=== PATIENT | male | born 1960 | race Caucasian/White ===

== ENCOUNTER 2018-06-16 17:50 | Emergency (ER) | payer OTHER ==
[2018-06-16] MEDS ORDERED: FLUT16SP19 NS (18:04)
[2018-06-16] MEDS ORDERED: ASPI81TA94 PO (18:04)
[2018-06-16] MEDS ORDERED: SIMV-49 PO (18:04)
--- NOTE | 2018-06-16 18:14 | EKG ---
FACILITY: [facility] PATIENT NAME: TORRI FITZGERALD : [id number] MR: [id number] V: [id number] EXAM DATE: ORDERING PHYSICIAN: LUIZ PERALTA TECHNOLOGIST: TANA Cabezas Reason : Blood Pressure : / mmHG Vent. Rate : 097 BPM Atrial Rate : 097 BPM P-R Int : 172 ms QRS Dur : 110 ms QT Int : 364 ms P-R-T Axes : 042 -50 029 degrees QTc Int : 462 ms Sinus rhythm with occasional premature ventricular complexes and Possible premature atrial complexes with aberrant conduction Left anterior fascicular block Abnormal ECG No previous ECGs available Confirmed by TORRI TUTTLE ([id number]) on 06/16/2018 8:17:25 PM Referred By: Confirmed By:TORRI TUTTLE
--- NOTE | 2018-06-16 18:15 | ER Report ---
History and Physical Time Seen By MD: 18:15 Hx. of Stated Complaint: PT REPORT R SIDE CHEST PAIN, WORSE WITH DEEP BREATH HPI/ROS CHIEF COMPLAINT: Chest pain HISTORY OF PRESENT ILLNESS: This is a 58-year-old male. He is having pain in the right side of the chest. Sharp in quality. Radiates to his back. Worse with deep breaths. Does not seem to worsen with exertion. He had the pain start yesterday. He did note some weakness and discomfort in his hips and legs when hiking yesterday. Denies any fevers or chills. He has had a little bit of a cough. No nausea or vomiting but he does have a poor appetite. No problem with bowel or bladder function. Allergies: Coded Allergies: acetaminophen (Verified Allergy, Unknown, 06/16/18) hydrocodone (Verified Allergy, Unknown, 06/16/18) Home Meds Reported Medications Fluticasone Prop 50 Mcg Ns (FLONASE 50 MCG NS) 16 Gm [place].susp, 1 SPRAY NS BID, BOT 06/16/18 Aspirin (ASPIRIN) 81 Mg Tab.chew, 81 MG PO QDAY, TAB.CHEW 06/16/18 Simvastatin (SIMVASTATIN) 20 Mg Tablet, 10 MG PO HS, TAB 06/16/18 Reviewed Nurses Notes: Yes Hx Substance Use Disorder: No Hx Alcohol Use: No Constitutional Vital Sign - Last 24 Hours 06/16/18 06/16/18 06/16/18 06/16/18 17:54 17:56 18:00 18:05 Temp 98.5 Pulse 103 86 Resp 20 25 B/P (MAP) 155/97 155/97 (116) 159/98 (118) Pulse Ox 90 88 06/16/18 06/16/18 06/16/18 06/16/18 18:20 18:30 18:35 18:50 Pulse 88 74 82 Resp 19 21 18 B/P (MAP) 141/83 (102) Pulse Ox 86 87 91 06/16/18 06/16/18 06/16/18 06/16/18 18:59 19:00 19:05 19:20 Pulse 83 84 Resp 19 14 B/P (MAP) 133/83 (100) Pulse Ox 93 92 O2 Flow Rate 2.0 06/16/18 06/16/18 06/16/18 06/16/18 19:30 19:35 19:40 19:55 Pulse 80 82 82 Resp 24 28 19 B/P (MAP) 133/77 (95) Pulse Ox 93 93 93 06/16/18 06/16/18 06/16/18 06/16/18 20:00 20:10 20:25 20:30 Pulse 79 ??? Resp 25 B/P (MAP) 133/75 (94) ???/??? (1665) Pulse Ox 92 93 06/16/18 06/16/18 06/16/18 06/16/18 20:40 21:00 21:10 21:15 Pulse ? B/P (MAP) ???/??? (1665) 133/73 (93) 06/16/18 06/16/18 21:25 21:30 Pulse 78 Resp 29 B/P (MAP) 124/70 (88) Pulse Ox 94 Physical Exam General Appearance: The patient is alert. No acute distress. Non-toxic in appearance. Eyes: Pupils are equal, round. No pallor, injection or icterus. ENT: Mucous membranes are moist. Normal oral mucosa. Posterior oropharynx is normal. Neck: Supple and non tender. Respiratory: Lungs are clear to auscultation. Cardiovascular: Tachycardia, irregularly irregular rhythm. No murmurs, gallops or rubs. Normal capillary refill. Gastrointestinal: Abdomen is soft and non tender. Nondistended. Normal active bowel sounds. Neurological: Alert and oriented x3. No focal neurologic deficits Skin: Warm and dry. No rashes. Musculoskeletal: Extremities are nontender. No pain with palpating the chest wall or back. No tenderness in palpation of the cervical, thoracic and lumbar spine. DIFFERENTIAL DIAGNOSIS: After history and physical exam, differential diagnosis was considered for chest pain including but not limited to myocardial ischemia, pericarditis pulmonary embolus, chest wall pain, pleural inflammation and pulmon gulshan infectious causes. Medical Decision Making Data Points Result Diagram: 06/16/18195406/16/18 182 Laboratory Hematology Test 06/16/18 18:20 06/16/18 19:55 D-Dimer Quantitative (PE/DVT) 1.10 ug/ml (0-0.50) Sodium Level 140 mmol/L (137-145) Potassium Level 3.8 mmol/L (3.5-5.0) Chloride Level 102 mmol/L (98-107) Carbon Dioxide Level 25 mmol/L (22-30) Blood Urea Nitrogen 15 mg/dl (9-21) Creatinine 1.10 mg/dl (0.66-1.25) Glomerular Filtration Rate Calc > 60.0 Random Glucose 111 mg/dl (75-110) Calcium Level 9.1 mg/dl (8.4-10.2) Total Bilirubin 1.2 mg/dl (0.2-1.3) Aspartate Amino Transf (AST/SGOT) 38 U/L (0-35) Alanine Aminotransferase (ALT/SGPT) 35 U/L (0-56) Alkaline Phosphatase 54 U/L (0-126) Troponin I < 0.012 ng/ml C-Reactive Protein 7.5 mg/dl (<1.0) Total Protein 7.5 g/dl (6.3-8.2) Albumin 4.4 g/dl (3.5-5.0) Red Blood Count 5.28 M/uL (4.00-5.60) Mean Corpuscular Volume 89.5 fL (80.0-96.0) Mean Corpuscular Hemoglobin 30.6 pg (26.0-33.0) Mean Corpuscular Hemoglobin Concent 34.2 g/dL (32.0-36.0) Red Cell Distribution Width 13.8 % (11.5-14.5) Mean Platelet Volume 9.7 fL (7.2-11.1) Neutrophils (%) (Auto) 71.5 % (39.4-72.5) Lymphocytes (%) (Auto) 16.4 % (17.6-49.6) Monocytes (%) (Auto) 10.7 % (4.1-12.4) Eosinophils (%) (Auto) 0.6 % (0.4-6.7) Basophils (%) (Auto) 0.8 % (0.3-1.4) Nucleated RBC Relative Count (auto) 0.1 /100WBC Neutrophils # (Auto) 7.5 K/uL (2.0-7.4) Lymphocytes # (Auto) 1.7 K/uL (1.3-3.6) Monocytes # (Auto) 1.1 K/uL (0.3-1.0) Eosinophils # (Auto) 0.1 K/uL (0.0-0.5) Basophils # (Auto) 0.1 K/uL (0.0-0.1) Nucleated RBC Absolute Count (auto) 0.01 K/uL Erythrocyte Sedimentation Rate 11 mm/HOUR (0-20) B-Type Natriuretic Peptide 11 pg/ml (0-100) Chemistry Test 06/16/18 18:20 06/16/18 19:55 D-Dimer Quantitative (PE/DVT) 1.10 ug/ml (0-0.50) Glomerular Filtration Rate Calc > 60.0 Calcium Level 9.1 mg/dl (8.4-10.2) Total Bilirubin 1.2 mg/dl (0.2-1.3) Aspartate Amino Transf (AST/SGOT) 38 U/L (0-35) Alanine Aminotransferase (ALT/SGPT) 35 U/L (0-56) Alkaline Phosphatase 54 U/L (0-126) Troponin I < 0.012 ng/ml C-Reactive Protein 7.5 mg/dl (<1.0) Total Protein 7.5 g/dl (6.3-8.2) Albumin 4.4 g/dl (3.5-5.0) White Blood Count 10.4 k/uL (4.5-11.0) Red Blood Count 5.28 M/uL (4.00-5.60) Hemoglobin 16.2 g/dL (14.0-18.0) Hematocrit 47.3 % (42.0-52.0) Mean Corpuscular Volume 89.5 fL (80.0-96.0) Mean Corpuscular Hemoglobin 30.6 pg (26.0-33.0) Mean Corpuscular Hemoglobin Concent 34.2 g/dL (32.0-36.0) Red Cell Distribution Width 13.8 % (11.5-14.5) Platelet Count 157 K/uL (150-450) Mean Platelet Volume 9.7 fL (7.2-11.1) Neutrophils (%) (Auto) 71.5 % (39.4-72.5) Lymphocytes (%) (Auto) 16.4 % (17.6-49.6) Monocytes (%) (Auto) 10.7 % (4.1-12.4) Eosinophils (%) (Auto) 0.6 % (0.4-6.7) Basophils (%) (Auto) 0.8 % (0.3-1.4) Nucleated RBC Relative Count (auto) 0.1 /100WBC Neutrophils # (Auto) 7.5 K/uL (2.0-7.4) Lymphocytes # (Auto) 1.7 K/uL (1.3-3.6) Monocytes # (Auto) 1.1 K/uL (0.3-1.0) Eosinophils # (Auto) 0.1 K/uL (0.0-0.5) Basophils # (Auto) 0.1 K/uL (0.0-0.1) Nucleated RBC Absolute Count (auto) 0.01 K/uL Erythrocyte Sedimentation Rate 11 mm/HOUR (0-20) B-Type Natriuretic Peptide 11 pg/ml (0-100) Coagulation Test 06/16/18 18:20 D-Dimer Quantitative (PE/DVT) 1.10 ug/ml EKG/Imaging EKG Interpretation 12 lead EKG: Rhythm: Sinus rhythm with PVCs, rate 97 [employer]: Left axis deviation QRS: Left anterior fascicular block ST segments: No ST elevation or depression noted, nonspecific T-wave flattening in the inferior leads Imaging EXAMINATION: PA and Lateral Chest 06/16/2018 7:05 PM HISTORY: chest pain. IV blew during attempt at CTA chest. COMPARISON: None FINDINGS: Cardiomediastinal contours: Normal Lungs and pleura: Normal Bones/soft tissues: Significant density of extravasated contrast in the subclavicular and axillary area on the left. IMPRESSION: 1. Extravasated contrast in the left subclavicular and axillary area. 2. No acute cardiopulmonary finding. Report Dictated By: Sudeep Ruiz MD at 06/16/2018 9:[address] PE DATE: 06/16/2018 9:27 PM INDICATION: Chest pain. COMPARISON: Same-day radiographs. TECHNIQUE: Axial CT angiogram was obtained through the chest with intravenous contrast. Sagittal and coronal MPR and MIP coronal reformations were also generated. 95 mL isovue 370. During injection, there is a large volume of contrast extravasation into the left upper extremity and chest. One of the following dose optimization techniques was utilized in the performance of this exam: Automated exposure control; adjustment of the mA and/or kV according to the patient's size; or use of an iterative reconstruction technique. Specific details can be referenced in the facility's radiology CT exam operational policy. FINDINGS: Thyroid / Thoracic Inlet: No visualized thyroid nodule or supraclavicular lymphadenopathy. Pulmonary Arteries: Examination is nondiagnostic for evaluation of the pulmonary arteries in terms of filling defects due to lack of adequate contrast opacification. Heart and Aorta: Normal-size heart with no pericardial effusion. Nonaneurysmal thoracic aorta. Mediastinum and Elizabet: No lymphadenopathy. Lungs and Pleura: No pleural effusion or pneumothorax. There is a patchy, reticular and groundglass opacification in the periphery of the right lower lobe base as well as in the medial base of the right middle lobe. Small right pleural effusion. Bilateral calcified granulomas. There are additional small nodules that may not be calcified in the right upper lobe including 4 mm nodule on image 116 series 4 and 3 mm nodule on image 114. No pneumothorax. Breast and Axilla: No axillary lymphadenopathy. No adenopathy. Upper Abdomen: No visualized acute abnormality. Bones and Soft Tissues: No suspicious osseous or soft tissue abnormality. Extravasated contrast in the left anterior chest wall, incompletely imaged. IMPRESSION: 1. Nondiagnostic evaluation of the pulmonary arteries for pulmonary emboli due to lack of sufficient intravenous contrast. Extravasated contrast in the left anterior chest wall, incompletely imaged. 2. Peripheral opacities in the base of the right lower and middle lobes with small right pleural effusion. Although nonspecific, these opacities do have a pattern that can be seen in the setting of pulmonary infarct. Infectious or inflammatory etiology not excluded. Consider evaluation of the extremities for deep vein thromboses if indicated. Dr. Campbell discussed this case with LUIZ PERALTA on 06/16/2018 9:39 PM. Report Dictated By: Noe Campbell MD at 06/16/2018 9:27 PM ED Course/Re-evaluation Clinical Indication for ER IV: IV Access ED Course After my initial evaluation, concerned about PE versus inflammatory or infectious etiology. The patient is most worried about cardiac and I think this is less likely but indicated to him that we would do an evaluation. Troponin and EKG are unremarkable. Labs otherwise unremarkable except for his d-dimer which was elevated. He has no swelling in the lower extremities and no pain there. Nursing had a hard time getting IV and were able to get one on the upper chest wall. CT angiogram was attempted and the IV blew. Unable to get the full CT angiogram done. This does show some changes that could be representing pulmonary infarct with PE, however not able to diagnose Aaron. Discussed all this with the patient. After our discussion, he will return in the morning to see if we can get an IV placed with ultrasound guidance and get a CT angiogram completed. In the meantime we did give him 140 mg subcutaneous injection of Lovenox. Decision to Disposition Date: Jun 16, 2018 Decision to Disposition Time: 23:19 Depart Departure Latest Vital Signs Vital Signs Date Time Temp Pulse Resp B/P (MAP) Pulse Ox O2 Delivery O2 Flow Rate FiO2 06/16/18 21:30 124/70 (88) 06/16/18 21:25 78 29 94 06/16/18 18:59 2.0 06/16/18 17:54 98.5 Impression: Primary Impression: Chest pain Condition: Improved Disposition: HOME OR SELF-CARE Patient Instructions: Chest Pain (ED) Problem Qualifiers Primary Impression: Chest pain Chest pain type: unspecified Qualified Codes: R07.9 - Chest pain, unspecified LUIZ PERALTA MD Jun 16, 2018 18:15
[2018-06-16 20:08] LABS: PLATELET COUNT, AUTOMATED 157 K/uL (150-450)
[2018-06-16] MEDS ORDERED: IOPAMIDOL 76% 100 ML INFUS BTL 0 ML ONE (20:24)
[2018-06-16] MEDS ORDERED: NS(*) 0.9% 50 ML BAG 0 ML ONE (20:24)
[2018-06-16] MEDS ORDERED: NS(*) 0.9% 50 ML BAG 50 ML ONE (20:44)
[2018-06-16] MEDS ORDERED: IOPAMIDOL 76% 75 ML INFUS BTL 75 ML ONE (20:45)
--- NOTE | 2018-06-16 21:29 | RADIOLOGY IMAGING REPORT ---
FACILITY: [facility] PATIENT NAME: Subhash Kaufman : 1960 MR: [id number] V: [id number] EXAM DATE: ORDERING PHYSICIAN: LUIZ PERALTA TECHNOLOGIST: Location: [facility] Patient: Subhash Kaufman : 1960 Visit/Account:[id number] Date of Sevice: 06/16/2018 EXAMINATION: PA and Lateral Chest 06/16/2018 7:05 PM HISTORY: chest pain. IV blew during attempt at CTA chest. COMPARISON: None FINDINGS: Cardiomediastinal contours: Normal Lungs and pleura: Normal Bones/soft tissues: Significant density of extravasated contrast in the subclavicular and axillary ar ea on the left. IMPRESSION: 1. Extravasated contrast in the left subclavicular and axillary area. 2. No acute cardiopulmonary finding. Report Dictated By: Sudeep Ruiz MD at 06/16/2018 9:22 PM Report E-Signed By: Sudeep Ruiz MD at 06/16/2018 9:24 PM WSN:[id number]
[2018-06-16 21:30] VITALS: BP 124/70
--- NOTE | 2018-06-16 21:43 | RADIOLOGY IMAGING REPORT ---
[place] [facility] [place] NAME: Subhash Kaufman : 1960 MR: [id number] V: [id number] EXAM DATE: [id number] ORDERING PHYSICIAN: LUIZ PERALTA [place]CHNOLOGIST: [place] [facility] [place]hash K[place] : 1960 Visit/Account:[id number] Date of Sevice: 06/16/2018 CT PE DATE: 06/16/2018 9:27 PM INDICATION: Chest pain. COMPARISON: Same-day radiographs. TECHNIQUE: Axial CT angiogram was obtained through the chest with intravenous contrast. Sagittal an d coronal MPR and MIP coronal reformations were also generated. 95 mL isovue 370. During injection, there is a large volume of contrast extravasation into the left upper extremity and chest. One of t he following dose optimization techniques was utilized in the performance of this exam: Automated exp osure control; adjustment of the mA and/or kV according to the patient's size; or use of an iterative reconstruction technique. Specific details can be referenced in the facility's radiology CT exam o perational policy. FINDINGS: Thyroid / Thoracic Inlet: No visualized thyroid nodule or supraclavicular lymphadenopathy. Pulmonary Arteries: Examination is nondiagnostic for evaluation of the pulmonary arteries in terms o f filling defects due to lack of adequate contrast opacification. Heart and Aorta: Normal-size heart with no pericardial effusion. Nonaneurysmal thoracic aorta. Mediastinum and Elizabet: No lymphadenopathy. Lungs and Pleura: No pleural effusion or pneumothorax. There is a patchy, reticular and groundglass opacification in the periphery of the right lower lobe base as well as in the medial base of the rig ht middle lobe. Small right pleural effusion. Bilateral calcified granulomas. There are additional small nodules that may not be calcified in the right upper lobe including 4 mm nodule on image 116 s eries 4 and 3 mm nodule on image 114. No pneumothorax. Breast and Axilla: No axillary lymphadenopathy. No adenopathy. Upper Abdomen: No visualized acute abnormality. Bones and Soft Tissues: No suspicious osseous or soft tissue abnormality. Extravasated contrast in the left anterior chest wall, incompletely imaged. IMPRESSION: 1. Nondiagnostic evaluation of the pulmonary arteries for pulmonary emboli due to lack of sufficient intravenous contrast. Extravasated contrast in the left anterior chest wall, incompletely imaged. 2. Peripheral opacities in the base of the right lower and middle lobes with small right pleural eff usion. Although nonspecific, these opacities do have a pattern that can be seen in the setting of pu lmonary infarct. Infectious or inflammatory etiology not excluded. Consider evaluation of the extre mities for deep vein thromboses if indicated. Dr. Campbell discussed this case with LUIZ PERALTA on 06/16/2018 9:39 PM. Report Dictated By: Noe Campbell MD at 06/16/2018 9:27 PM Report E-Signed By: Noe Campbell MD at 06/16/2018 9:39 PM WSN:[id number]
[2018-06-16] MEDS ORDERED: ENOXAPARIN 100 MG/ML SYR SC SCH (21:50)
== END 2018-06-16 22:13 | disposition home or self-care (01) ==
LOC: ER 18:20
DX: R07.89 Other chest pain (principal); R94.31 Abnormal electrocardiogram [ECG] [EKG]
CPT/HCPCS: 36415; 71046; 71275; 83880; 84484; 85025; 85379; 85651; 86140; 93005; 96372; 99284; J1650; J7050; Q9967; 82040; 82247; 82310; 82374; 82435; 82565; 82947; 84075; 84132; 84155; 84295; 84450; 84460; 84520